=== PATIENT | male | born 1995 | race Asian ===

== ENCOUNTER 2020-08-19 15:00 | Outpatient (CLI) | payer OTHER, SELFPAY | END 2020-08-19 15:01 | disposition home or self-care (01) | LOC: ANHCOVIDVC 15:00 | PROVIDERS: PCP Pediatrics | DX: Z23 Encounter for immunization (principal) | CPT/HCPCS: 0001A; 91300 ==

== ENCOUNTER 2020-09-09 15:01 | Outpatient (CLI) | payer OTHER, SELFPAY | END 2020-09-09 15:02 | disposition home or self-care (01) | LOC: ANHCOVIDVC 15:01 | PROVIDERS: PCP Pediatrics | DX: Z23 Encounter for immunization (principal) | CPT/HCPCS: 0002A; 91300 ==

== ENCOUNTER 2024-06-02 08:15 | Emergency (ER) | payer SELFPAY ==
[2024-06-02 08:27] VITALS: BP 142/87; PULSE 96; RESP 16; TEMP 36.8; O2SAT 100
--- NOTE | 2024-06-02 08:27 | ED_ITS ---
HPI - Male Genitourinary General Chief complaint: Urogenital-Male Stated complaint: Sti Test Time Seen by Provider: 06/02/24 08:27 Source: patient, RN notes reviewed and old records reviewed Mode of arrival: ambulatory Limitations: no limitations History of Present Illness HPI Narrative: 28-year-old male who presents to [facility] with concern for exposure to STDs. Patient has no symptoms reported at this time denies any penis drainage, any pain with urination or any testicle discomfort Patient reports that his friend had tested for STD without any symptoms and was found to have Chylmydia o he is concerned and wants to be tested. He denies any known exposure. MD Complaint: other (wants tested for STD's) Associated symptoms: Reports other (none) Related Data Home Medications ?Medication ?Instructions ?Recorded ?Confirmed ?Last Taken ?Type No Home Medications 06/02/24 06/02/24 Unknown History Allergies Allergy/AdvReac Type Severity Reaction Status Date / Time No Known Allergies Allergy Unverified 06/02/24 08:44 Review of Systems Review of Systems: CONSTITUTIONAL: Denies fever, chills, or sweats. CARDIOVASCULAR: Denies chest pain, palpitations, or edema. RESPIRATORY: Denies cough or dyspnea. GASTROINTESTINAL: Denies abdominal pain, nausea, vomiting, or diarrhea. GENITOURINARY: Reports no dysuria, frequency, urgency. Denies flank pain or hematuria. denie any penile discharge or any pain with urination SKIN: Denies rash or itching. MUSCULOSKELETAL: Denies back pain or myalgia. Denies CVA tenderness NEUROLOGIC: Denies headache All systems reviewed & are unremarkable except as noted in HPI and below PMFSH Social History Social History (Updated 06/04/24 @ 10:50 by Jesika Richard NP) Smoking status: Current every day smoker Alcohol intake: current Alcohol use details: social Gender identity (if verbalized by the patient): Male Comments At time of signature, agree with nursing past medical, surgical, social and family history. There is no relevant family history pertinent to the presenting complaint Exam Narrative: GENERAL: Well-appearing, well-nourished, and in no acute distress. HEAD: Normocephalic, atraumatic. NECK: Supple.no lymphadenopathy CHEST: Clear to auscultation. No respiratory distress.SAO2 100% on room air HEART: Regular rate and rhythm. No murmur heard. Normal peripheral pulses. ABDOMEN: Soft, nontender, nondistended, normal active bowel sounds. No CVA tenderness deenis drainage or painnies any pain or burning with urination or any p EXTREMITIES: Normal range of motion. No edema. SKIN: Warm, dry, no rash. NEURO: No focal deficits. Alert and oriented x3. Course Course Emergency Course: Patient is aware of diagnosis, understands and agrees to treatment plan.? Anticipatory guidance given.? Patient agrees to follow-up as directed and is aware of reasons to seek care at the emergency department. Portions of this record may have been created with voice recognition software Level of Care: [facility] Visit Vital Signs Vital signs: Vital Signs Temperature 36.8 C 06/02/24 08:27 Pulse Rate 96 06/02/24 08:27 Respiratory Rate 16 06/02/24 08:27 Blood Pressure 142/87 H 06/02/24 08:27 Pulse Oximetry 100 06/02/24 08:27 Temperature 36.8 C 06/02/24 08:27 Pulse Rate 96 06/02/24 08:27 Respiratory Rate 16 06/02/24 08:27 Blood Pressure 142/87 H 06/02/24 08:27 Pulse Oximetry 100 06/02/24 08:27 MDM - Male Genitourinary Differential Diagnosis Differential diagnosis: Likely other (want tested for STD's no known exposure to STD's, no urinary symptoms or drainage) Medical Records Attestation: I reviewed the patient's medical records. Lab Data Attestation: I reviewed the patient's lab results. Lab results narrative: urine for STD evaluation sent Labs: Lab Results 06/02/24 Range/Units 08:31 C. trachomatis (PCR) Not detected (NOT DETECTE) N. gonorrhoeae (PCR) Not detected (NOT DETECTE) T. vaginalis (PCR) Not detected (NOT DETECTE) reviewed Critical Care Time Critical Care Time Critical Care Time: No Discharge Plan Discharge Clinical Impression: Concern about STD in male without diagnosis Patient Disposition: Home, Self-Care Condition: Stable Instructions: Sexually Transmitted Diseases (ED) Additional Instructions: your tests will be sent for analysis abstain from any sexual activity until you know your test results and if are positive you will be treated and you need to abstain for any sexual activity for 2 weeks after completion of antibiotic practice safe sex practices use condoms more comprehensive testing needs to be done you can contact [facility] or you can contact [facility] If your symptoms persist, change or worsen significantly before you can contact your personal physician then please, without delay, go to the emergency department for further evaluation. Follow-up with PCP in 7-10 days or sooner if needed Follow up with PCP soon in regards to your blood pressure which is elevated above threshold for referral. Blood pressure above 120/80 may indicate pre-hype rtension. 142/87 Patient Language: Luxembourgish Prescriptions: No Action No Home Medications Follow-up/Referrals: PHYSICIAN,GLASS[employer]KER DEMONSTRATOR [Primary Care Provider] - Time of Disposition: 08:55 Quality Cecily Coma Scale Eyes: Open Verbal: Oriented and Alert Motor: Follows Commands [place] Coma Total Score: 15
[2024-06-02 19:10] LABS: Trichomonas Vag PCR NOT DETECTED (NOT DETECTE)
[2024-06-02 19:33] LABS: Chlamydia trachomatis NOT DETECTED (NOT DETECTE); Neisseria gonorrhoeae PCR NOT DETECTED (NOT DETECTE)
== END 2024-06-02 08:59 | disposition home or self-care (01) ==
PROVIDERS: Emergency Provider Registered Nurse
DX: Z11.3 Encounter for screening for infections with a predominantly sexual mode of transmission (principal); F17.210 Nicotine dependence, cigarettes, uncomplicated
CPT/HCPCS: 87491; 87591; 87661; 99203; G0463